=== PATIENT | female | born 1970 | race Caucasian/White ===

== ENCOUNTER 2017-06-22 22:15 | Emergency (ER) | payer MEDICAID ==
[~2017-06-22] VITALS: Ht 170.2 cm; Wt 64.4 kg
[2017-06-22 22:40] VITALS: BP_SYST 115
== END 2017-06-23 | disposition left against medical advice (07) ==
LOC: SED 22:15
DX: M25.512 Pain in left shoulder (principal); Z53.21 Procedure and treatment not carried out due to patient leaving prior to being seen by health care provider